=== PATIENT | male | born 1970 | race Caucasian/White ===

== ENCOUNTER 2017-05-08 16:16 | Emergency (ER) | payer MEDICAID ==
[~2017-05-08] VITALS: Ht 170.2 cm; Wt 49.5 kg
[2017-05-08] MEDS ORDERED: CLON-364 PO (16:44)
[2017-05-08] MEDS ORDERED: FLUO40CA2 PO (16:45)
[2017-05-08] MEDS ORDERED: MELO7.5T31 PO (16:45)
[2017-05-08] MEDS ORDERED: SODIUM CHLORIDE 0.9% 1,000ML IVBOLUS ONE (17:00)
[2017-05-08] MEDS ORDERED: SODIUM CHLORIDE FLUSH 10ML SYR IVF ONE (17:00)
[2017-05-08 17:08] LABS: BASOPHILS # (AUTO) 0.01 x10^3/uL (0-0.1); BASOPHILS % (AUTO) 0 % (0-1); EOSINOPHILS # (AUTO) 0.09 x10^3/uL (0-0.4); EOSINOPHILS % (AUTO) 1 % (1-7); LYMPHOCYTES # (AUTO) 1.45 x10^3/uL (1-3.4); LYMPHOCYTES % (AUTO) 10 % (22-44); MD NO; MEAN CORPUSCULAR HEMOGLOBIN 33.2 pg (27.5-34.5); MEAN CORPUSCULAR VOLUME 97.5 fL (81-97); MEAN PLATELET VOLUME 7.7 fL (7.4-10.4); MONOCYTES % (AUTO) 6 % (2-9); NEUTROPHILS % (AUTO) 84 % (42-75); PLATELET COUNT 300 x10^3/uL (130-400); RED BLOOD COUNT 3.84 x10^6/uL (4.38-5.82); RED CELL DISTRIBUTION WIDTH 14.1 % (9.4-14.8)
[2017-05-08 17:20] LABS: ALBUMIN 3.6 g/dL (3.4-5.0); ANION GAP 8 mmol/L (5-15); CALCIUM 8.9 mg/dL (8.5-10.1); CHLORIDE 104 mmol/L (98-107)
[2017-05-08 17:27] LABS: ALANINE AMINOTRANSFERASE 14 U/L (12-78); ALKALINE PHOSPHATASE 113 U/L (45-117); BILIRUBIN,TOTAL 0.5 mg/dL (0.2-1.0); CREATININE 1.22 mg/dL (0.7-1.3); TOTAL PROTEIN 8.2 g/dL (6.4-8.2); TROPONIN I < 0.015 ng/mL (0.000-0.045)
[2017-05-08 18:13] VITALS: BP 110/72
[2017-05-08] MEDS ORDERED: ACETAMINOPHEN 325 MG TABLET ONE (18:15)
[2017-05-08] MEDS ORDERED: ACETAMINOPHEN 325 MG TABLET PO ONE (18:30)
[2017-05-08 18:36] LABS: RAPID INFLUENZA A Negative (Negative); RAPID INFLUENZA B Negative (Negative)
== END 2017-05-08 19:26 | disposition home or self-care (01) ==
LOC: ED 19:09
DX: R42 Dizziness and giddiness (principal); E86.0 Dehydration; D72.829 Elevated white blood cell count, unspecified; M25.552 Pain in left hip; G89.29 Other chronic pain
CPT/HCPCS: 36415; 71046; 80053; 84484; 85025; 87400; 93005; 96360; 99285; J7030

== ENCOUNTER 2017-05-21 12:29 | Emergency (ER) | payer MEDICAID ==
[~2017-05-21] VITALS: Ht 170.2 cm; Wt 49.8 kg
[~2017-05-21 12:29] MED LIST: CLON-364 PO; FLUO40CA2 PO; MELO7.5T31 PO
[2017-05-21 18:27] VITALS: BP 110/52
== END 2017-05-21 18:40 | disposition home or self-care (01) ==
LOC: ED 18:16
DX: J11.1 Influenza due to unidentified influenza virus with other respiratory manifestations (principal); B34.9 Viral infection, unspecified; G89.29 Other chronic pain
CPT/HCPCS: 71046; 93005; 99284

== ENCOUNTER 2017-12-04 01:52 | Emergency (ER) | payer MEDICAID ==
[~2017-12-04] VITALS: Ht 170.2 cm; Wt 50.0 kg
[~2017-12-04 01:52] MED LIST changes: -CLON-364 PO; +CLON0.5T11 PO
[2017-12-04 02:51] LABS: BASOPHILS # (AUTO) 0.06 x10^3/uL (0-0.1); BASOPHILS % (AUTO) 1 % (0-1); EOSINOPHILS # (AUTO) 0.08 x10^3/uL (0-0.4); EOSINOPHILS % (AUTO) 1 % (1-7); LYMPHOCYTES # (AUTO) 2.16 x10^3/uL (1-3.4); LYMPHOCYTES % (AUTO) 19 % (22-44); MD NO; MEAN CORPUSCULAR HEMOGLOBIN 33.2 pg (27.5-34.5); MEAN CORPUSCULAR HGB CONC 34.7 g/dL (33.2-36.2); MEAN CORPUSCULAR VOLUME 95.7 fL (81-97); MEAN PLATELET VOLUME 7.6 fL (7.4-10.4); MONOCYTES # (AUTO) 0.54 x10^3/uL (0.2-0.8); MONOCYTES % (AUTO) 5 % (2-9); NEUTROPHILS # (AUTO) 8.73 x10^3/uL (1.8-6.8); NEUTROPHILS % (AUTO) 75 % (42-75); PLATELET COUNT 279 x10^3/uL (130-400); RED BLOOD COUNT 4.43 x10^6/uL (4.38-5.82); RED CELL DISTRIBUTION WIDTH 15.5 % (9.4-14.8)
[2017-12-04 02:57] LABS: ALANINE AMINOTRANSFERASE 14 U/L (12-78); ALBUMIN 3.9 g/dL (3.4-5.0); ANION GAP 8 mmol/L (5-15); CALCIUM 8.7 mg/dL (8.5-10.1); CHLORIDE 104 mmol/L (98-107); CREATININE 1.14 mg/dL (0.7-1.3)
[2017-12-04 02:59] LABS: ALKALINE PHOSPHATASE 98 U/L (45-117); BILIRUBIN,TOTAL 0.2 mg/dL (0.2-1.0); TOTAL PROTEIN 8.7 g/dL (6.4-8.2)
[2017-12-04 03:02] LABS: MICROSCOPIC NOT IND
[2017-12-04 03:04] LABS: CULTURE INDICATED? NO
[2017-12-04 03:14] LABS: AMPHETAMINE SCREEN, URINE Negative (Negative); BARBITURATE SCREEN, URINE Negative (Negative); BENZODIAZEPINE SCREEN, URINE Negative (Negative); CANNABINOID SCREEN, URINE Negative (Negative); COCAINE SCREEN, URINE Negative (Negative); METHADONE SCREEN, URINE Negative (Negative); OPIATE SCREEN, URINE Negative (Negative)
[2017-12-04 04:43] VITALS: BP 114/67
== END 2017-12-04 06:12 | disposition home or self-care (01) ==
LOC: ED 05:55
DX: N40.1 Benign prostatic hyperplasia with lower urinary tract symptoms (principal); F10.120 Alcohol abuse with intoxication, uncomplicated; Z79.899 Other long term (current) drug therapy
CPT/HCPCS: 36415; 51701; 80053; 80307; 81003; 83690; 85025; 99284; P9612

== ENCOUNTER 2017-12-13 07:05 | Emergency (ER) | payer MEDICAID ==
[~2017-12-13] VITALS: Ht 170.2 cm; Wt 50.0 kg
[2017-12-13 07:55] LABS: BASOPHILS # (AUTO) 0.03 x10^3/uL (0-0.1); BASOPHILS % (AUTO) 0 % (0-1); EOSINOPHILS # (AUTO) 0.04 x10^3/uL (0-0.4); EOSINOPHILS % (AUTO) 1 % (1-7); LYMPHOCYTES # (AUTO) 1.76 x10^3/uL (1-3.4); LYMPHOCYTES % (AUTO) 22 % (22-44); MD NO; MEAN CORPUSCULAR HEMOGLOBIN 32.5 pg (27.5-34.5); MEAN CORPUSCULAR HGB CONC 33.8 g/dL (33.2-36.2); MEAN CORPUSCULAR VOLUME 96.1 fL (81-97); MONOCYTES # (AUTO) 0.43 x10^3/uL (0.2-0.8); MONOCYTES % (AUTO) 5 % (2-9); NEUTROPHILS # (AUTO) 5.93 x10^3/uL (1.8-6.8); NEUTROPHILS % (AUTO) 72 % (42-75); PLATELET COUNT 263 x10^3/uL (130-400); RED BLOOD COUNT 4.41 x10^6/uL (4.38-5.82); RED CELL DISTRIBUTION WIDTH 15.4 % (9.4-14.8)
[2017-12-13 08:02] LABS: ALANINE AMINOTRANSFERASE 15 U/L (12-78); ALBUMIN 3.9 g/dL (3.4-5.0); ANION GAP 9 mmol/L (5-15); CALCIUM 8.5 mg/dL (8.5-10.1); CHLORIDE 105 mmol/L (98-107); CREATININE 1.06 mg/dL (0.7-1.3)
[2017-12-13 08:05] LABS: ALKALINE PHOSPHATASE 93 U/L (45-117); BILIRUBIN,TOTAL 0.2 mg/dL (0.2-1.0); TOTAL PROTEIN 8.5 g/dL (6.4-8.2)
[2017-12-13 09:14] LABS: MICROSCOPIC INDICATED
[2017-12-13 09:22] LABS: CULTURE INDICATED? NO
[2017-12-13 10:02] VITALS: BP 105/74
== END 2017-12-13 11:54 | disposition left against medical advice (07) ==
LOC: ED 08:04
DX: F10.220 Alcohol dependence with intoxication, uncomplicated (principal); R33.9 Retention of urine, unspecified; G89.29 Other chronic pain
CPT/HCPCS: 36415; 80053; 81001; 85025; 99284

== ENCOUNTER 2018-01-15 22:45 | Emergency (ER) | payer MEDICAID ==
[~2018-01-15] VITALS: Ht 170.2 cm; Wt 50.0 kg
[2018-01-15 22:45] VITALS: BP 120/83
[2018-01-15 23:15] LABS: BASOPHILS # (AUTO) 0.04 x10^3/uL (0-0.1); BASOPHILS % (AUTO) 1 % (0-1); EOSINOPHILS # (AUTO) 0.08 x10^3/uL (0-0.4); EOSINOPHILS % (AUTO) 1 % (1-7); LYMPHOCYTES # (AUTO) 2.45 x10^3/uL (1-3.4); LYMPHOCYTES % (AUTO) 38 % (22-44); MD NO; MEAN CORPUSCULAR HEMOGLOBIN 33.7 pg (27.5-34.5); MEAN CORPUSCULAR HGB CONC 34.7 g/dL (33.2-36.2); MEAN CORPUSCULAR VOLUME 97.1 fL (81-97); MEAN PLATELET VOLUME 7.6 fL (7.4-10.4); MONOCYTES % (AUTO) 9 % (2-9); NEUTROPHILS # (AUTO) 3.37 x10^3/uL (1.8-6.8); NEUTROPHILS % (AUTO) 52 % (42-75); PLATELET COUNT 256 x10^3/uL (130-400); RED BLOOD COUNT 4.04 x10^6/uL (4.38-5.82); RED CELL DISTRIBUTION WIDTH 14.3 % (9.4-14.8)
[2018-01-15 23:23] LABS: ALBUMIN 3.8 g/dL (3.4-5.0); ANION GAP 10 mmol/L (5-15); CALCIUM 8.7 mg/dL (8.5-10.1); CHLORIDE 109 mmol/L (98-107)
[2018-01-16 00:22] LABS: MICROSCOPIC NOT IND
[2018-01-16 00:25] LABS: CULTURE INDICATED? NO
== END 2018-01-16 01:19 | disposition home or self-care (01) ==
LOC: ED 23:07
DX: R33.9 Retention of urine, unspecified (principal); F10.220 Alcohol dependence with intoxication, uncomplicated; G89.29 Other chronic pain; Z79.899 Other long term (current) drug therapy
CPT/HCPCS: 36415; 51701; 80048; 80307; 81003; 82040; 85025; 99285; P9612

== ENCOUNTER 2018-02-11 00:09 | Emergency (ER) | payer MEDICAID ==
[~2018-02-11] VITALS: Ht 170.2 cm; Wt 55.0 kg
[2018-02-11] MEDS ORDERED: DIAZEPAM 5 MG TABLET ONE (00:45)
[2018-02-11] MEDS ORDERED: DIAZEPAM 5 MG TABLET PO ONE (01:00)
[2018-02-11 01:04] VITALS: BP 132/74
== END 2018-02-11 01:06 | disposition home or self-care (01) ==
LOC: ED 00:54
DX: M79.651 Pain in right thigh (principal); M62.838 Other muscle spasm; G25.81 Restless legs syndrome; G89.29 Other chronic pain
CPT/HCPCS: 99284

== ENCOUNTER 2018-02-11 06:01 | Emergency (ER) | payer MEDICAID ==
[~2018-02-11] VITALS: Ht 167.6 cm; Wt 54.0 kg
[2018-02-11 07:21] LABS: MICROSCOPIC NOT IND
[2018-02-11 07:24] LABS: CULTURE INDICATED? NO
[2018-02-11 08:28] VITALS: BP 113/79
== END 2018-02-11 08:30 | disposition home or self-care (01) ==
LOC: ED 06:11
DX: N40.1 Benign prostatic hyperplasia with lower urinary tract symptoms (principal); R33.8 Other retention of urine
CPT/HCPCS: 81003; 99283

== ENCOUNTER 2018-02-16 09:06 | Emergency (ER) | payer MEDICAID ==
[~2018-02-16] VITALS: Ht 170.2 cm; Wt 52.4 kg
[2018-02-16 09:10] VITALS: BP 106/77
[2018-02-17] MEDS ORDERED: TAMS0.4C2 PO (16:12)
[2018-02-17] MEDS ORDERED: CLON0.5T20 PO (16:12)
== END 2018-02-16 10:52 | disposition home or self-care (01) ==
LOC: ED 09:40
DX: R33.9 Retention of urine, unspecified (principal); F41.9 Anxiety disorder, unspecified; F32.9 Major depressive disorder, single episode, unspecified; Z86.19 Personal history of other infectious and parasitic diseases; Z87.01 Personal history of pneumonia (recurrent)
CPT/HCPCS: 99281

== ENCOUNTER 2018-02-16 14:22 | Inpatient (IN) | payer MEDICAID ==
[~2018-02-16] VITALS: Ht 167.6 cm; Wt 54.7 kg
[2018-02-16 15:13] LABS: BASOPHILS # (AUTO) 0.03 x10^3/uL (0-0.1); BASOPHILS % (AUTO) 0 % (0-1); EOSINOPHILS # (AUTO) 0.07 x10^3/uL (0-0.4); EOSINOPHILS % (AUTO) 1 % (1-7); LYMPHOCYTES # (AUTO) 1.21 x10^3/uL (1-3.4); LYMPHOCYTES % (AUTO) 16 % (22-44); MD NO; MEAN CORPUSCULAR HEMOGLOBIN 33.2 pg (27.5-34.5); MEAN CORPUSCULAR VOLUME 97.7 fL (81-97); MONOCYTES # (AUTO) 0.63 x10^3/uL (0.2-0.8); MONOCYTES % (AUTO) 8 % (2-9); NEUTROPHILS # (AUTO) 5.77 x10^3/uL (1.8-6.8); NEUTROPHILS % (AUTO) 75 % (42-75); PLATELET COUNT 348 x10^3/uL (130-400); RED BLOOD COUNT 3.55 x10^6/uL (4.38-5.82); RED CELL DISTRIBUTION WIDTH 14.7 % (9.4-14.8)
[2018-02-16 15:20] LABS: ALBUMIN 3.1 g/dL (3.4-5.0); ANION GAP 6 mmol/L (5-15); CALCIUM 9.1 mg/dL (8.5-10.1); CHLORIDE 104 mmol/L (98-107)
[2018-02-16 15:23] LABS: ALANINE AMINOTRANSFERASE 23 U/L (12-78); ALKALINE PHOSPHATASE 105 U/L (45-117); BILIRUBIN,TOTAL 0.5 mg/dL (0.2-1.0); CREATININE 1.12 mg/dL (0.7-1.3); TOTAL PROTEIN 7.2 g/dL (6.4-8.2)
[2018-02-16] MEDS ORDERED: OMNIPAQUE 350 MG/ML, 100ML BOTTLE ONE (17:18)
[2018-02-16] MEDS ORDERED: LIDOCAINE-MPF 1%, 5ML ONE (18:15)
[2018-02-16] MEDS ORDERED: TEMAZEPAM 15 MG CAPSULE PO PRN (18:30)
[2018-02-16] MEDS ORDERED: ONDANSETRON ODT 4 MG PO PRN (18:30)
[2018-02-16] MEDS ORDERED: ACETAMINOPHEN 325 MG TABLET PO PRN (18:30)
[2018-02-16] MEDS ORDERED: hydrALAzine 20 MG/ML, 1ML IVPush PRN (18:30)
[2018-02-16] MEDS ORDERED: FENTANYL PF 100 MCG/2ML ONE (18:38)
[2018-02-16 20:00] VITALS: BP 114/76
[2018-02-16 20:09] VITALS: BP 114/76
[2018-02-17 03:26] VITALS: BP 117/83
[2018-02-17 05:30] LABS: BASOPHILS # (AUTO) 0.05 x10^3/uL (0-0.1); BASOPHILS % (AUTO) 1 % (0-1); EOSINOPHILS % (AUTO) 1 % (1-7); LYMPHOCYTES # (AUTO) 1.22 x10^3/uL (1-3.4); LYMPHOCYTES % (AUTO) 15 % (22-44); MD NO; MEAN CORPUSCULAR HEMOGLOBIN 33.6 pg (27.5-34.5); MEAN CORPUSCULAR HGB CONC 33.7 g/dL (33.2-36.2); MEAN CORPUSCULAR VOLUME 99.6 fL (81-97); MEAN PLATELET VOLUME 7.5 fL (7.4-10.4); MONOCYTES # (AUTO) 0.72 x10^3/uL (0.2-0.8); MONOCYTES % (AUTO) 9 % (2-9); NEUTROPHILS # (AUTO) 5.95 x10^3/uL (1.8-6.8); NEUTROPHILS % (AUTO) 74 % (42-75); PLATELET COUNT 335 x10^3/uL (130-400); RED BLOOD COUNT 3.57 x10^6/uL (4.38-5.82); RED CELL DISTRIBUTION WIDTH 14.8 % (9.4-14.8)
[2018-02-17 05:40] LABS: ANION GAP 8 mmol/L (5-15); CALCIUM 8.6 mg/dL (8.5-10.1); CHLORIDE 109 mmol/L (98-107)
[2018-02-17 05:41] LABS: CREATININE 0.86 mg/dL (0.7-1.3)
[2018-02-17 07:59] VITALS: BP 122/80
[2018-02-17] MEDS: HYDROcodone/APAP 5/325 TABLET PO PRN (09:32)
[2018-02-17 15:00] VITALS: BP 106/73
[2018-02-17] MEDS ORDERED: CLON0.5T20 PO (16:12)
[2018-02-17] MEDS ORDERED: TAMS0.4C2 PO (16:12)
[2018-02-17 19:09] VITALS: BP 113/75
[2018-02-18 02:22] VITALS: BP 115/76
[2018-02-18] MEDS: FLUOXETINE HCL 20 MG CAPSULE PO SCH (07:58)
[2018-02-18 09:45] VITALS: BP 108/74
[2018-02-18 12:50] VITALS: BP 116/79
[2018-02-18 19:02] VITALS: BP 105/72
[2018-02-19 02:11] VITALS: BP 113/79
[2018-02-19 08:44] VITALS: BP 111/74
[2018-02-19] MEDS: FLUOXETINE HCL 20 MG CAPSULE PO SCH (08:47)
[2018-02-19] MEDS: HYDROcodone/APAP 5/325 TABLET PO PRN ×2 (12:13→17:26)
[2018-02-19 15:31] VITALS: BP 111/76
[2018-02-19 19:05] VITALS: BP 104/70
[2018-02-20 02:16] VITALS: BP 118/78
[2018-02-20] MEDS: HYDROcodone/APAP 5/325 TABLET PO PRN ×3 (03:55→19:55)
[2018-02-20 07:59] VITALS: BP 106/71
[2018-02-20] MEDS: FLUOXETINE HCL 20 MG CAPSULE PO SCH (08:50)
[2018-02-20 13:41] VITALS: BP 101/50
[2018-02-20] MEDS: DOCUSATE 100 MG CAPSULE PO PRN (16:33)
[2018-02-20] MEDS ORDERED: BISACODYL 10 MG SUPP PR PRN (17:00)
[2018-02-20] MEDS: MAGNESIUM HYDROXIDE 8%, 30ML UDC PO PRN (17:44)
[2018-02-20 20:21] VITALS: BP 111/79
[2018-02-21 04:17] VITALS: BP 110/77
[2018-02-21 05:18] LABS: BASOPHILS # (AUTO) 0.02 x10^3/uL (0-0.1); BASOPHILS % (AUTO) 0 % (0-1); EOSINOPHILS # (AUTO) 0.13 x10^3/uL (0-0.4); EOSINOPHILS % (AUTO) 1 % (1-7); LYMPHOCYTES # (AUTO) 1.47 x10^3/uL (1-3.4); LYMPHOCYTES % (AUTO) 16 % (22-44); MD NO; MEAN CORPUSCULAR HEMOGLOBIN 33.8 pg (27.5-34.5); MEAN CORPUSCULAR HGB CONC 34.1 g/dL (33.2-36.2); MEAN CORPUSCULAR VOLUME 99.2 fL (81-97); MEAN PLATELET VOLUME 7.3 fL (7.4-10.4); MONOCYTES # (AUTO) 1.21 x10^3/uL (0.2-0.8); MONOCYTES % (AUTO) 13 % (2-9); NEUTROPHILS # (AUTO) 6.35 x10^3/uL (1.8-6.8); NEUTROPHILS % (AUTO) 69 % (42-75); PLATELET COUNT 348 x10^3/uL (130-400); RED BLOOD COUNT 3.73 x10^6/uL (4.38-5.82); RED CELL DISTRIBUTION WIDTH 14.6 % (9.4-14.8)
[2018-02-21 05:27] LABS: INTERNATIONAL NORMALIZED RATIO 0.96 (0.93-1.1); PROTHROMBIN TIME 9.9 Seconds (9.6-11.5)
[2018-02-21 05:29] LABS: ANION GAP 7 mmol/L (5-15); CALCIUM 8.7 mg/dL (8.5-10.1); CHLORIDE 104 mmol/L (98-107)
[2018-02-21 05:31] LABS: CREATININE 0.85 mg/dL (0.7-1.3)
[2018-02-21 07:09] VITALS: BP 105/69
[2018-02-21] MEDS: FLUOXETINE HCL 20 MG CAPSULE PO SCH (09:00)
[2018-02-21] MEDS ORDERED: D5%-0.45% NACL 1,000 ML IV SCH (10:00)
[2018-02-21] MEDS: HYDROcodone/APAP 5/325 TABLET PO PRN (10:02)
[2018-02-21] MEDS ORDERED: MIDAZOLAM 1 MG/ML, 2ML ONE (12:35)
[2018-02-21] MEDS ORDERED: FENTANYL PF 250 MCG/5ML ONE (12:35)
[2018-02-21] MEDS ORDERED: BUPIVACAINE/PF-EPI 0.5% 1:200K ONE (12:51)
[2018-02-21] MEDS ORDERED: HYDROmorphone 1 MG/ML, 1ML IV PRN (13:00)
[2018-02-21] MEDS ORDERED: MORPHINE SULFATE 4 MG/ML, 1ML IVPush PRN (13:00)
[2018-02-21] MEDS ORDERED: MEPERIDINE/PF 25MG/0.5ML IVPush PRN (13:00)
[2018-02-21] MEDS ORDERED: MIDAZOLAM 1 MG/ML, 2ML IV PRN (13:00)
[2018-02-21] MEDS ORDERED: PROMETHAZINE 12.5 MG SUPP PR PRN (13:00)
[2018-02-21] MEDS ORDERED: OXYcodone 5 MG/5 ML ORAL.SOL UDC PO PRN (13:00)
[2018-02-21] MEDS ORDERED: PROMETHAZINE 25 MG/ML, 1ML IM PRN (13:00)
[2018-02-21] MEDS ORDERED: LABETALOL 5MG/ML, 20ML IV PRN (13:00)
[2018-02-21] MEDS ORDERED: EPHEDRINE 50 MG/ML, 1ML IVPush PRN (13:00)
[2018-02-21] MEDS ORDERED: ONDANSETRON 2MG/ML, 2ML IV PRN ×2 (13:00→17:00)
[2018-02-21] MEDS ORDERED: LORazepam 2 MG/ML, 1ML IVPush PRN (13:00)
[2018-02-21] MEDS ORDERED: hydrALAzine 20 MG/ML, 1ML IV PRN (13:00)
[2018-02-21] MEDS ORDERED: ONDANSETRON ODT 8 MG PO PRN (13:00)
[2018-02-21] MEDS ORDERED: ALBUTEROL SULFATE 2.5 MG/3 ML NPPB PRN (13:00)
[2018-02-21] MEDS ORDERED: NEOSTIGMINE 1 MG/ML, 10ML ONE (13:27)
[2018-02-21] MEDS ORDERED: ROCURONIUM 10 MG/ML,10ML ONE (13:27)
[2018-02-21] MEDS ORDERED: PROPOFOL 10 MG/ML, 20ML ONE (13:27)
[2018-02-21] MEDS ORDERED: ONDANSETRON 2MG/ML, 2ML ONE (13:27)
[2018-02-21] MEDS ORDERED: GLYCOPYRROLATE 0.2MG/1ML, 5ML ONE (13:27)
[2018-02-21] MEDS ORDERED: SUCCINYLCHOLINE 20 MG/ML, 10ML ONE (13:27)
[2018-02-21] MEDS ORDERED: DEXAMETHASONE 4 MG/ML, 1ML ONE (13:56)
[2018-02-21] MEDS ORDERED: DOXYCYCLINE 100 MG ONE ×3 (14:04→14:10)
[2018-02-21] MEDS ORDERED: SODIUM CHLORIDE 0.9% 100 ML ONE (14:05)
[2018-02-21] MEDS ORDERED: BUPIVACAINE/EPI 0.5% 1:200K INFIL ONE (14:30)
[2018-02-21] MEDS ORDERED: FENTANYL PF 100 MCG/2ML ONE (14:58)
[2018-02-21] MEDS ORDERED: MORPHINE SULFATE 4 MG/ML, 1ML ONE ×2 (14:58→15:54)
[2018-02-21] MEDS: FENTANYL PF 100 MCG/2ML IV PRN ×2 (15:04→15:18)
[2018-02-21] MEDS ORDERED: LABETALOL 5MG/ML, 20ML ONE (15:23)
[2018-02-21] MEDS ORDERED: hydrALAzine 20 MG/ML, 1ML ONE (15:47)
[2018-02-21] MEDS: ACETAMINOPHEN 500 MG TABLET PO SCH (18:11)
[2018-02-21] MEDS: POTASSIUM CHLORIDE 20 MEQ in D5%-0.45% NACL 1,000 ML IV SCH (19:05)
[2018-02-21 20:00] VITALS: BP 112/79
[2018-02-21 23:51] VITALS: BP 108/75
[2018-02-22] MEDS: ACETAMINOPHEN 500 MG TABLET PO SCH ×4 (00:12→18:46)
[2018-02-22 04:04] VITALS: BP 102/69
[2018-02-22] MEDS: POTASSIUM CHLORIDE 20 MEQ in D5%-0.45% NACL 1,000 ML IV SCH ×2 (05:52→18:51)
[2018-02-22 06:51] VITALS: BP 104/68
[2018-02-22] MEDS: FLUOXETINE HCL 20 MG CAPSULE PO SCH (08:18)
[2018-02-22] MEDS: HEPARIN 5,000 UNITS/ML, 1ML SQ SCH ×2 (09:53→18:46)
[2018-02-22 12:52] VITALS: BP 102/71
[2018-02-22] MEDS: MAGNESIUM HYDROXIDE 8%, 30ML UDC PO PRN (18:46)
[2018-02-22] MEDS: DOCUSATE 100 MG CAPSULE PO PRN (18:46)
[2018-02-22 20:26] VITALS: BP 107/67
[2018-02-23] MEDS: ACETAMINOPHEN 500 MG TABLET PO SCH ×5 (00:08→22:45)
[2018-02-23] MEDS: HEPARIN 5,000 UNITS/ML, 1ML SQ SCH ×4 (01:32→22:45)
[2018-02-23 02:15] VITALS: BP 97/63
[2018-02-23 05:54] LABS: ANION GAP 6 mmol/L (5-15); CALCIUM 8.7 mg/dL (8.5-10.1); CHLORIDE 102 mmol/L (98-107)
[2018-02-23 05:57] LABS: CREATININE 0.73 mg/dL (0.7-1.3)
[2018-02-23 06:09] LABS: BASOPHILS # (AUTO) 0.03 x10^3/uL (0-0.1); BASOPHILS % (AUTO) 0 % (0-1); EOSINOPHILS # (AUTO) 0.08 x10^3/uL (0-0.4); EOSINOPHILS % (AUTO) 1 % (1-7); LYMPHOCYTES % (AUTO) 19 % (22-44); MD NO; MEAN CORPUSCULAR HGB CONC 34.3 g/dL (33.2-36.2); MEAN PLATELET VOLUME 7.1 fL (7.4-10.4); MONOCYTES # (AUTO) 1.14 x10^3/uL (0.2-0.8); MONOCYTES % (AUTO) 14 % (2-9); NEUTROPHILS # (AUTO) 5.54 x10^3/uL (1.8-6.8); NEUTROPHILS % (AUTO) 66 % (42-75); PLATELET COUNT 342 x10^3/uL (130-400); RED BLOOD COUNT 2.33 x10^6/uL (4.38-5.82); RED CELL DISTRIBUTION WIDTH 13.7 % (9.4-14.8)
[2018-02-23 06:54] VITALS: BP 98/62
[2018-02-23] MEDS: FLUOXETINE HCL 20 MG CAPSULE PO SCH (08:58)
[2018-02-23] MEDS: DOCUSATE 100 MG CAPSULE PO PRN (09:03)
[2018-02-23] MEDS: POTASSIUM CHLORIDE 20 MEQ in D5%-0.45% NACL 1,000 ML IV SCH ×2 (09:24→22:43)
[2018-02-23 11:58] LABS: BASOPHILS # (AUTO) 0.02 x10^3/uL (0-0.1); BASOPHILS % (AUTO) 0 % (0-1); EOSINOPHILS # (AUTO) 0.07 x10^3/uL (0-0.4); EOSINOPHILS % (AUTO) 1 % (1-7); LYMPHOCYTES # (AUTO) 1.34 x10^3/uL (1-3.4); LYMPHOCYTES % (AUTO) 18 % (22-44); MD NO; MEAN CORPUSCULAR HEMOGLOBIN 33.3 pg (27.5-34.5); MEAN CORPUSCULAR HGB CONC 33.8 g/dL (33.2-36.2); MEAN CORPUSCULAR VOLUME 98.5 fL (81-97); MEAN PLATELET VOLUME 7.4 fL (7.4-10.4); MONOCYTES % (AUTO) 11 % (2-9); NEUTROPHILS # (AUTO) 5.37 x10^3/uL (1.8-6.8); NEUTROPHILS % (AUTO) 71 % (42-75); PLATELET COUNT 367 x10^3/uL (130-400); RED BLOOD COUNT 2.36 x10^6/uL (4.38-5.82)
[2018-02-23 12:18] VITALS: BP 113/69
[2018-02-23] MEDS ORDERED: OMNIPAQUE 350 MG/ML, 75ML BOTTLE ONE (14:18)
[2018-02-23] MEDS: TAMSULOSIN 0.4 MG CAP.ER.24H PO SCH (15:22)
[2018-02-23 20:50] VITALS: BP 104/64
[2018-02-24 01:18] VITALS: BP 101/66
[2018-02-24 05:24] LABS: ANION GAP 7 mmol/L (5-15); CALCIUM 8.1 mg/dL (8.5-10.1); CHLORIDE 104 mmol/L (98-107); CREATININE 0.76 mg/dL (0.7-1.3)
[2018-02-24 05:26] LABS: MEAN CORPUSCULAR HEMOGLOBIN 33.7 pg (27.5-34.5); MEAN PLATELET VOLUME 7.2 fL (7.4-10.4); PLATELET COUNT 346 x10^3/uL (130-400); RED BLOOD COUNT 2.24 x10^6/uL (4.38-5.82)
[2018-02-24 05:43] LABS: BASOPHILS # (AUTO) 0.04 x10^3/uL (0-0.1); BASOPHILS % (AUTO) 1 % (0-1); EOSINOPHILS # (AUTO) 0.14 x10^3/uL (0-0.4); EOSINOPHILS % (AUTO) 2 % (1-7); LYMPHOCYTES % (AUTO) 16 % (22-44); MD SCAN; MONOCYTES # (AUTO) 0.68 x10^3/uL (0.2-0.8); MONOCYTES % (AUTO) 11 % (2-9); NEUTROPHILS # (AUTO) 4.46 x10^3/uL (1.8-6.8); NEUTROPHILS % (AUTO) 71 % (42-75)
[2018-02-24 07:53] VITALS: BP 99/67
[2018-02-24] MEDS: FLUOXETINE HCL 20 MG CAPSULE PO SCH (09:00)
[2018-02-24] MEDS: TAMSULOSIN 0.4 MG CAP.ER.24H PO SCH (09:00)
[2018-02-24] MEDS: HEPARIN 5,000 UNITS/ML, 1ML SQ SCH ×2 (10:00→18:00)
[2018-02-24] MEDS: ACETAMINOPHEN 500 MG TABLET PO SCH ×3 (11:00→23:29)
[2018-02-24] MEDS: POTASSIUM CHLORIDE 20 MEQ in D5%-0.45% NACL 1,000 ML IV SCH (12:20)
[2018-02-24 14:15] VITALS: BP 108/70
[2018-02-24] MEDS ORDERED: EPINEPHRINE 1 MG/ML, 1ML ONE (15:02)
[2018-02-24] MEDS ORDERED: BUPIVACAINE/PF 0.5% ONE (15:02)
[2018-02-24] MEDS ORDERED: FENTANYL PF 250 MCG/5ML ONE (15:24)
[2018-02-24] MEDS ORDERED: MIDAZOLAM 1 MG/ML, 2ML ONE (15:43)
[2018-02-24] MEDS ORDERED: ONDANSETRON 2MG/ML, 2ML ONE (15:44)
[2018-02-24] MEDS ORDERED: FENTANYL PF 100 MCG/2ML ONE ×2 (16:22→17:58)
[2018-02-24] MEDS ORDERED: MEPERIDINE/PF 50 MG/ML ONE (17:19)
[2018-02-24] MEDS ORDERED: hydrALAzine 20 MG/ML, 1ML IV PRN (17:30)
[2018-02-24] MEDS ORDERED: HYDROmorphone 1 MG/ML, 1ML IV PRN (17:30)
[2018-02-24] MEDS ORDERED: ONDANSETRON ODT 8 MG PO PRN (17:30)
[2018-02-24] MEDS ORDERED: MORPHINE SULFATE 4 MG/ML, 1ML IVPush PRN (17:30)
[2018-02-24] MEDS ORDERED: HALOPERIDOL 5 MG/ML IV PRN (17:30)
[2018-02-24] MEDS ORDERED: LORazepam 2 MG/ML, 1ML IVPush PRN (17:30)
[2018-02-24] MEDS ORDERED: PROMETHAZINE 25 MG/ML, 1ML IV PRN (17:30)
[2018-02-24] MEDS ORDERED: PROMETHAZINE 12.5 MG SUPP PR PRN (17:30)
[2018-02-24] MEDS ORDERED: ONDANSETRON 2MG/ML, 2ML IV PRN (17:30)
[2018-02-24] MEDS ORDERED: LABETALOL 5MG/ML, 20ML IV PRN (17:30)
[2018-02-24] MEDS ORDERED: OXYcodone 5 MG/5 ML ORAL.SOL UDC PO PRN (17:30)
[2018-02-24] MEDS ORDERED: EPHEDRINE 50 MG/ML, 1ML IVPush PRN (17:30)
[2018-02-24] MEDS ORDERED: MEPERIDINE/PF 25MG/0.5ML IVPush PRN (17:30)
[2018-02-24] MEDS ORDERED: MIDAZOLAM 1 MG/ML, 2ML IV PRN (17:30)
[2018-02-24] MEDS ORDERED: ALBUTEROL SULFATE 2.5 MG/3 ML NPPB PRN (17:30)
[2018-02-24] MEDS ORDERED: OXYcodone 5 MG/5 ML ORAL.SOL UDC ONE (17:59)
[2018-02-24] MEDS: FENTANYL PF 100 MCG/2ML IV PRN ×2 (18:00→18:15)
[2018-02-24 18:50] VITALS: BP 119/77
[2018-02-25 00:34] VITALS: BP 111/74
[2018-02-25] MEDS: HEPARIN 5,000 UNITS/ML, 1ML SQ SCH ×3 (02:00→17:02)
[2018-02-25] MEDS: POTASSIUM CHLORIDE 20 MEQ in D5%-0.45% NACL 1,000 ML IV SCH (03:59)
[2018-02-25] MEDS: ACETAMINOPHEN 500 MG TABLET PO SCH ×4 (05:38→23:07)
[2018-02-25 07:15] VITALS: BP 112/74
[2018-02-25] MEDS: FLUOXETINE HCL 20 MG CAPSULE PO SCH (08:58)
[2018-02-25] MEDS: TAMSULOSIN 0.4 MG CAP.ER.24H PO SCH (08:58)
[2018-02-25] MEDS: CYANOCOBALOMIN 100MCG TABLET PO SCH (10:22)
[2018-02-25] MEDS: POLYETHYLENE GLYCOL 17 GM PACKET PO SCH (10:22)
[2018-02-25 13:00] VITALS: BP 107/69
[2018-02-25 18:30] VITALS: BP 106/69
[2018-02-25] MEDS: AMPICILLIN/SULBACTAM 3 GM in SODIUM CHLORIDE 0.9% 100 ML IV SCH (23:07)
[2018-02-26 00:49] VITALS: BP 102/69
[2018-02-26] MEDS: HEPARIN 5,000 UNITS/ML, 1ML SQ SCH ×3 (04:41→22:36)
[2018-02-26] MEDS: AMPICILLIN/SULBACTAM 3 GM in SODIUM CHLORIDE 0.9% 100 ML IV SCH ×4 (04:44→22:36)
[2018-02-26] MEDS: DOCUSATE 100 MG CAPSULE PO PRN (04:44)
[2018-02-26] MEDS: ACETAMINOPHEN 500 MG TABLET PO SCH ×3 (05:28→18:07)
[2018-02-26 07:18] VITALS: BP 105/71
[2018-02-26] MEDS ORDERED: ALBUTEROL SULFATE 2.5 MG/3 ML NPPB PRN (08:30)
[2018-02-26] MEDS: TAMSULOSIN 0.4 MG CAP.ER.24H PO SCH (09:07)
[2018-02-26] MEDS: CYANOCOBALOMIN 100MCG TABLET PO SCH (09:07)
[2018-02-26] MEDS: FLUOXETINE HCL 20 MG CAPSULE PO SCH (09:07)
[2018-02-26] MEDS: POLYETHYLENE GLYCOL 17 GM PACKET PO SCH (09:08)
[2018-02-26 14:43] VITALS: BP 105/69
[2018-02-26] MEDS: MAGNESIUM HYDROXIDE 8%, 30ML UDC PO PRN (15:08)
[2018-02-26] MEDS: OXYcodone 5 MG/5 ML ORAL.SOL UDC PO PRN (15:09)
[2018-02-26] MEDS ORDERED: OXYcodone 5 MG/5 ML ORAL.SOL UDC PO PRN (16:00)
[2018-02-26 19:57] VITALS: BP 107/72
[2018-02-27] MEDS: OXYcodone 5 MG/5 ML ORAL.SOL UDC PO PRN ×6 (00:37→21:31)
[2018-02-27] MEDS: ACETAMINOPHEN 500 MG TABLET PO SCH ×5 (00:37→23:52)
[2018-02-27 00:41] VITALS: BP 113/72
[2018-02-27] MEDS: AMPICILLIN/SULBACTAM 3 GM in SODIUM CHLORIDE 0.9% 100 ML IV SCH ×4 (03:38→21:30)
[2018-02-27] MEDS: DOCUSATE 100 MG CAPSULE PO PRN (05:29)
[2018-02-27] MEDS: HEPARIN 5,000 UNITS/ML, 1ML SQ SCH ×3 (05:30→19:55)
[2018-02-27 05:45] LABS: BASOPHILS # (AUTO) 0.03 x10^3/uL (0-0.1); BASOPHILS % (AUTO) 0 % (0-1); EOSINOPHILS # (AUTO) 0.32 x10^3/uL (0-0.4); EOSINOPHILS % (AUTO) 4 % (1-7); LYMPHOCYTES # (AUTO) 1.89 x10^3/uL (1-3.4); LYMPHOCYTES % (AUTO) 24 % (22-44); MD NO; MEAN CORPUSCULAR HEMOGLOBIN 33.7 pg (27.5-34.5); MEAN CORPUSCULAR HGB CONC 34.3 g/dL (33.2-36.2); MEAN CORPUSCULAR VOLUME 98.3 fL (81-97); MEAN PLATELET VOLUME 6.6 fL (7.4-10.4); MONOCYTES # (AUTO) 1.01 x10^3/uL (0.2-0.8); MONOCYTES % (AUTO) 13 % (2-9); NEUTROPHILS # (AUTO) 4.64 x10^3/uL (1.8-6.8); NEUTROPHILS % (AUTO) 59 % (42-75); PLATELET COUNT 609 x10^3/uL (130-400); RED BLOOD COUNT 2.47 x10^6/uL (4.38-5.82); RED CELL DISTRIBUTION WIDTH 14.6 % (9.4-14.8)
[2018-02-27 05:52] LABS: ALBUMIN 2.5 g/dL (3.4-5.0); ANION GAP 7 mmol/L (5-15); CALCIUM 8.7 mg/dL (8.5-10.1); CHLORIDE 102 mmol/L (98-107)
[2018-02-27 05:54] LABS: CREATININE 0.87 mg/dL (0.7-1.3)
[2018-02-27 07:31] VITALS: BP 109/71
[2018-02-27] MEDS: CYANOCOBALOMIN 100MCG TABLET PO SCH (08:01)
[2018-02-27] MEDS: TAMSULOSIN 0.4 MG CAP.ER.24H PO SCH (08:02)
[2018-02-27] MEDS: FLUOXETINE HCL 20 MG CAPSULE PO SCH (08:02)
[2018-02-27] MEDS: POLYETHYLENE GLYCOL 17 GM PACKET PO SCH (08:02)
[2018-02-27 13:04] VITALS: BP 105/68
[2018-02-27 20:16] VITALS: BP 118/56
[2018-02-28 01:47] VITALS: BP 108/70
[2018-02-28] MEDS: OXYcodone 5 MG/5 ML ORAL.SOL UDC PO PRN ×2 (02:02→08:47)
[2018-02-28] MEDS: AMPICILLIN/SULBACTAM 3 GM in SODIUM CHLORIDE 0.9% 100 ML IV SCH ×4 (03:29→21:43)
[2018-02-28] MEDS: HEPARIN 5,000 UNITS/ML, 1ML SQ SCH ×3 (03:52→21:43)
[2018-02-28 05:22] LABS: BASOPHILS # (AUTO) 0.03 x10^3/uL (0-0.1); BASOPHILS % (AUTO) 0 % (0-1); EOSINOPHILS # (AUTO) 0.32 x10^3/uL (0-0.4); EOSINOPHILS % (AUTO) 4 % (1-7); LYMPHOCYTES # (AUTO) 1.94 x10^3/uL (1-3.4); LYMPHOCYTES % (AUTO) 24 % (22-44); MD NO; MEAN CORPUSCULAR HEMOGLOBIN 33.1 pg (27.5-34.5); MEAN CORPUSCULAR HGB CONC 33.2 g/dL (33.2-36.2); MEAN CORPUSCULAR VOLUME 99.8 fL (81-97); MEAN PLATELET VOLUME 6.7 fL (7.4-10.4); MONOCYTES # (AUTO) 0.94 x10^3/uL (0.2-0.8); MONOCYTES % (AUTO) 12 % (2-9); NEUTROPHILS # (AUTO) 4.81 x10^3/uL (1.8-6.8); NEUTROPHILS % (AUTO) 60 % (42-75); PLATELET COUNT 610 x10^3/uL (130-400); RED BLOOD COUNT 2.44 x10^6/uL (4.38-5.82); RED CELL DISTRIBUTION WIDTH 14.9 % (9.4-14.8)
[2018-02-28 05:56] LABS: CHLORIDE 107 mmol/L (98-107)
[2018-02-28] MEDS: ACETAMINOPHEN 500 MG TABLET PO SCH ×4 (06:00→23:55)
[2018-02-28 06:35] LABS: ALANINE AMINOTRANSFERASE 47 U/L (12-78); ALBUMIN 2.3 g/dL (3.4-5.0); ALKALINE PHOSPHATASE 90 U/L (45-117); ANION GAP 9 mmol/L (5-15); BILIRUBIN,TOTAL 0.2 mg/dL (0.2-1.0); CALCIUM 8.6 mg/dL (8.5-10.1); CREATININE 0.94 mg/dL (0.7-1.3); TOTAL PROTEIN 6.5 g/dL (6.4-8.2)
[2018-02-28 08:45] VITALS: BP 108/72
[2018-02-28] MEDS: CYANOCOBALOMIN 100MCG TABLET PO SCH (08:46)
[2018-02-28] MEDS: FLUOXETINE HCL 20 MG CAPSULE PO SCH (08:46)
[2018-02-28] MEDS: TAMSULOSIN 0.4 MG CAP.ER.24H PO SCH (08:46)
[2018-02-28] MEDS: POLYETHYLENE GLYCOL 17 GM PACKET PO SCH (09:00)
[2018-02-28 12:58] VITALS: BP 104/73
[2018-02-28 20:41] VITALS: BP 105/67
[2018-03-01] MEDS: ACETAMINOPHEN 500 MG TABLET PO SCH ×3 (00:24→13:38)
[2018-03-01] MEDS: OXYcodone 5 MG/5 ML ORAL.SOL UDC PO PRN ×2 (00:25→10:12)
[2018-03-01 03:11] VITALS: BP 120/76
[2018-03-01] MEDS: AMPICILLIN/SULBACTAM 3 GM in SODIUM CHLORIDE 0.9% 100 ML IV SCH ×2 (03:26→10:00)
[2018-03-01 05:36] LABS: BASOPHILS # (AUTO) 0.04 x10^3/uL (0-0.1); BASOPHILS % (AUTO) 0 % (0-1); EOSINOPHILS # (AUTO) 0.46 x10^3/uL (0-0.4); EOSINOPHILS % (AUTO) 5 % (1-7); LYMPHOCYTES # (AUTO) 2.37 x10^3/uL (1-3.4); LYMPHOCYTES % (AUTO) 24 % (22-44); MD NO; MEAN CORPUSCULAR HEMOGLOBIN 34.3 pg (27.5-34.5); MEAN CORPUSCULAR HGB CONC 34.3 g/dL (33.2-36.2); MEAN PLATELET VOLUME 6.6 fL (7.4-10.4); MONOCYTES # (AUTO) 0.87 x10^3/uL (0.2-0.8); MONOCYTES % (AUTO) 9 % (2-9); NEUTROPHILS # (AUTO) 6.02 x10^3/uL (1.8-6.8); NEUTROPHILS % (AUTO) 62 % (42-75); PLATELET COUNT 641 x10^3/uL (130-400); RED BLOOD COUNT 2.42 x10^6/uL (4.38-5.82)
[2018-03-01 05:42] LABS: ALBUMIN 2.5 g/dL (3.4-5.0); ANION GAP 10 mmol/L (5-15); CALCIUM 8.4 mg/dL (8.5-10.1); CHLORIDE 107 mmol/L (98-107); CREATININE 0.89 mg/dL (0.7-1.3)
[2018-03-01] MEDS: HEPARIN 5,000 UNITS/ML, 1ML SQ SCH ×2 (06:19→14:00)
[2018-03-01 07:22] VITALS: BP 109/73
[2018-03-01] MEDS: FLUOXETINE HCL 20 MG CAPSULE PO SCH (10:01)
[2018-03-01] MEDS: TAMSULOSIN 0.4 MG CAP.ER.24H PO SCH (10:01)
[2018-03-01] MEDS: POLYETHYLENE GLYCOL 17 GM PACKET PO SCH (10:02)
[2018-03-01] MEDS: CYANOCOBALOMIN 100MCG TABLET PO SCH (10:03)
[2018-03-01 12:23] VITALS: BP 120/78
[2018-03-01] MEDS ORDERED: ACET500T71 PO (15:02)
[2018-03-01] MEDS ORDERED: CYAN100074 PO (15:02)
[2018-03-01] MEDS ORDERED: NICO-486 TD (15:02)
== END 2018-03-01 17:20 | disposition home or self-care (01) | DRG 163 ==
LOC: ED 14:35 → EDIP 18:09 → 4NOR 19:50 → DCLOUNGE 03-01 17:00
PROVIDERS: ADMIT Family Medicine; ATTEND Family Medicine
PROC: 0W9B30Z Drainage of Left Pleural Cavity with Drainage Device, Percutaneous Approach (ICD-10-PCS; 2018-02-16)
PROC: 3E0L4GC Introduction of Other Therapeutic Substance into Pleural Cavity, Percutaneous Endoscopic Approach (ICD-10-PCS; 2018-02-21)
PROC: 0B9 Respiratory System, Drainage (ICD-10-PCS; 2018-02-21)
PROC: 3E0L4GC Introduction of Other Therapeutic Substance into Pleural Cavity, Percutaneous Endoscopic Approach (ICD-10-PCS; 2018-02-21)
PROC: 0BBG4ZZ Excision of Left Upper Lung Lobe, Percutaneous Endoscopic Approach (ICD-10-PCS; principal; 2018-02-21 14:15)
DX: A15.0 Tuberculosis of lung (principal); E43 Unspecified severe protein-calorie malnutrition; J95.811 Postprocedural pneumothorax; J94.8 Other specified pleural conditions; J44.0 Chronic obstructive pulmonary disease with (acute) lower respiratory infection; F33.1 Major depressive disorder, recurrent, moderate; F17.213 Nicotine dependence, cigarettes, with withdrawal; J98.11 Atelectasis; Z68.1 Body mass index [BMI] 19.9 or less, adult; M48.8X4 Other specified spondylopathies, thoracic region; J16.8 Pneumonia due to other specified infectious organisms; J90 Pleural effusion, not elsewhere classified; J94.2 Hemothorax; E53.8 Deficiency of other specified B group vitamins; F41.1 Generalized anxiety disorder; J43.9 Emphysema, unspecified; G25.81 Restless legs syndrome; K59.00 Constipation, unspecified; M19.90 Unspecified osteoarthritis, unspecified site; M91.12 Juvenile osteochondrosis of head of femur [Legg-Calve-Perthes], left leg; Z59.0 Homelessness; Z78.9 Other specified health status; Z87.11 Personal history of peptic ulcer disease; B95.3 Streptococcus pneumoniae as the cause of diseases classified elsewhere; B95.61 Methicillin susceptible Staphylococcus aureus infection as the cause of diseases classified elsewhere
CPT/HCPCS: 32557; 36415; 51702; 87806; 99285; J3490; 71045; 71250; 71260; 74177; 80048; 80053; 82040; 82728; 83540; 83550; 83690; 83735; 85014; 85018; 85025; 85610; 85651; 85730; 86140; 86480; 86612; 86635; 86698; 87015; 87070; 87075; 87077; 87102; 87116; 87181; 87186; 87205; 87206; 87305; 88307; 88312; C1729; G0378; J0171; J0295; J1100; J1644; J2250; J2270; J2405; J2704; J2710; J3010; J3480; Q9967; C1760; C1769; G0475; J0330; J0360

== ENCOUNTER 2018-03-08 08:18 | Emergency (ER) | payer MEDICAID ==
[~2018-03-08] VITALS: Ht 170.2 cm; Wt 50.5 kg
[~2018-03-08 08:18] MED LIST changes: +ACET500T71 PO; +CLON0.5T20 PO; +CYAN100074 PO; +NICO-486 TD; +TAMS0.4C2 PO
[2018-03-08 09:28] LABS: BASOPHILS # (AUTO) 0.05 x10^3/uL (0-0.1); BASOPHILS % (AUTO) 1 % (0-1); EOSINOPHILS % (AUTO) 1 % (1-7); LYMPHOCYTES # (AUTO) 1.32 x10^3/uL (1-3.4); LYMPHOCYTES % (AUTO) 19 % (22-44); MD NO; MEAN CORPUSCULAR HEMOGLOBIN 34.1 pg (27.5-34.5); MEAN CORPUSCULAR HGB CONC 34.1 g/dL (33.2-36.2); MEAN CORPUSCULAR VOLUME 100.1 fL (81-97); MEAN PLATELET VOLUME 6.5 fL (7.4-10.4); MONOCYTES # (AUTO) 0.73 x10^3/uL (0.2-0.8); MONOCYTES % (AUTO) 10 % (2-9); NEUTROPHILS # (AUTO) 4.87 x10^3/uL (1.8-6.8); NEUTROPHILS % (AUTO) 69 % (42-75); PLATELET COUNT 720 x10^3/uL (130-400); RED BLOOD COUNT 2.38 x10^6/uL (4.38-5.82); RED CELL DISTRIBUTION WIDTH 15.9 % (9.4-14.8)
[2018-03-08 09:37] LABS: ALBUMIN 2.9 g/dL (3.4-5.0); ANION GAP 8 mmol/L (5-15); CALCIUM 8.9 mg/dL (8.5-10.1); CHLORIDE 108 mmol/L (98-107); CREATININE 0.95 mg/dL (0.7-1.3)
[2018-03-08 10:39] VITALS: BP 109/81
== END 2018-03-08 10:41 | disposition home or self-care (01) ==
LOC: ED 09:12
DX: N40.1 Benign prostatic hyperplasia with lower urinary tract symptoms (principal); R33.8 Other retention of urine; J44.9 Chronic obstructive pulmonary disease, unspecified; F32.9 Major depressive disorder, single episode, unspecified; F17.200 Nicotine dependence, unspecified, uncomplicated; Z86.19 Personal history of other infectious and parasitic diseases
CPT/HCPCS: 36415; 80048; 82040; 85025; 99284

== ENCOUNTER 2018-04-03 14:19 | Emergency (ER) | payer MEDICAID ==
[~2018-04-03] VITALS: Ht 170.2 cm; Wt 57.0 kg
[2018-04-03] MEDS ORDERED: HYDROcodone/APAP 5/325 TABLET ONE (15:35)
[2018-04-03] MEDS ORDERED: KETOROLAC 30 MG/1 ML ONE (15:35)
[2018-04-03] MEDS ORDERED: HYDROcodone/APAP 5/325 TABLET PO ONE (16:00)
[2018-04-03] MEDS ORDERED: KETOROLAC 30 MG/1 ML IVPush ONE (16:00)
[2018-04-03 16:05] VITALS: BP 116/78
== END 2018-04-03 16:07 | disposition home or self-care (01) ==
LOC: ED 15:05
DX: R07.89 Other chest pain (principal); R05 Cough; J44.9 Chronic obstructive pulmonary disease, unspecified; F32.9 Major depressive disorder, single episode, unspecified; G89.29 Other chronic pain; F41.1 Generalized anxiety disorder; F17.200 Nicotine dependence, unspecified, uncomplicated
CPT/HCPCS: 71046; 93005; 96374; 99283; J1885

== ENCOUNTER 2018-05-20 15:19 | Emergency (ER) | payer MEDICAID ==
[~2018-05-20] VITALS: Ht 170.2 cm; Wt 58.0 kg
[~2018-05-20 15:19] MED LIST changes: +CEFD300C37 PO; +FAMO20TA7 PO; +METH4TAB2 PO
--- NOTE | 2018-05-20 15:50 | NUR ---
BIB [facility] CP SOB COUGH X 30 MO AND WEAKNESS INCREASING SEVERITY PAST HX IVÁN TUBE AND LUNG SURG HAS BEEN RO FOR TB IN THE PAST
[2018-05-20 15:51] LABS: BASOPHILS # (AUTO) 0.03 x10^3/uL (0-0.1); BASOPHILS % (AUTO) 1 % (0-1); EOSINOPHILS # (AUTO) 0.02 x10^3/uL (0-0.4); EOSINOPHILS % (AUTO) 0 % (1-7); LYMPHOCYTES # (AUTO) 1.28 x10^3/uL (1-3.4); LYMPHOCYTES % (AUTO) 21 % (22-44); MD NO; MEAN CORPUSCULAR VOLUME 81.9 fL (81-97); MEAN PLATELET VOLUME 7.1 fL (7.4-10.4); MONOCYTES # (AUTO) 0.83 x10^3/uL (0.2-0.8); MONOCYTES % (AUTO) 14 % (2-9); NEUTROPHILS % (AUTO) 64 % (42-75); PLATELET COUNT 314 x10^3/uL (130-400)
--- NOTE | 2018-05-20 15:55 | NUR ---
TO XR AT THIS TIME
[2018-05-20 15:59] LABS: ALBUMIN 3.1 g/dL (3.4-5.0); ANION GAP 8 mmol/L (5-15); CALCIUM 8.4 mg/dL (8.5-10.1); CHLORIDE 106 mmol/L (98-107); CREATININE 1.24 mg/dL (0.7-1.3)
[2018-05-20 16:03] LABS: TROPONIN I < 0.015 ng/mL (0.000-0.045)
[2018-05-20] MEDS ORDERED: KETOROLAC 30 MG/1 ML ONE (16:52)
[2018-05-20] MEDS ORDERED: KETOROLAC 30 MG/1 ML IM ONE (17:00)
[2018-05-20] MEDS ORDERED: KETOROLAC 30 MG/1 ML IVPush ONE (17:00)
[2018-05-20 17:09] VITALS: BP 112/74
== END 2018-05-20 17:35 | disposition home or self-care (01) ==
LOC: ED 16:23
DX: J18.9 Pneumonia, unspecified organism (principal); J44.9 Chronic obstructive pulmonary disease, unspecified; G89.29 Other chronic pain; Z86.19 Personal history of other infectious and parasitic diseases
CPT/HCPCS: 36415; 71046; 80048; 82040; 84484; 85025; 93005; 96374; 99284; J1885

== ENCOUNTER 2018-08-28 13:46 | Emergency (ER) | payer MEDICAID ==
[~2018-08-28] VITALS: Ht 170.2 cm; Wt 60.0 kg
[2018-08-28] MEDS ORDERED: ASPIRIN 81 MG TABLET CHEW PO ONE (14:00)
--- NOTE | 2018-08-28 14:04 | NUR ---
to room 3 from triage
[2018-08-28] MEDS ORDERED: ASPIRIN 81 MG TABLET CHEW ONE (14:08)
--- NOTE | 2018-08-28 14:20 | NUR ---
THIS IS A 48 YEAR OLD MALE WHO C/O OF CHEST PAIN. "RIPPING" COMES AND GOES X 4 MONTHS. 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
[2018-08-28 14:25] LABS: MEAN CORPUSCULAR HEMOGLOBIN 25.5 pg (27.5-34.5); MEAN CORPUSCULAR VOLUME 79.7 fL (81-97); MEAN PLATELET VOLUME 7.7 fL (7.4-10.4); PLATELET COUNT 368 x10^3/uL (130-400); RED BLOOD COUNT 4.49 x10^6/uL (4.38-5.82); RED CELL DISTRIBUTION WIDTH 22.1 % (9.4-14.8)
[2018-08-28 14:32] LABS: ALANINE AMINOTRANSFERASE 14 U/L (12-78); ALBUMIN 3.4 g/dL (3.4-5.0); ANION GAP 5 mmol/L (5-15); CALCIUM 8.6 mg/dL (8.5-10.1); CHLORIDE 110 mmol/L (98-107)
[2018-08-28 14:33] LABS: INTERNATIONAL NORMALIZED RATIO 0.97 (0.93-1.1); PROTHROMBIN TIME 10.2 Seconds (9.6-11.5)
[2018-08-28 14:37] LABS: ALKALINE PHOSPHATASE 92 U/L (45-117); BILIRUBIN,TOTAL 0.2 mg/dL (0.2-1.0); CREATININE 1.11 mg/dL (0.7-1.3); TOTAL PROTEIN 7.6 g/dL (6.4-8.2); TROPONIN I < 0.015 ng/mL (0.000-0.045)
[2018-08-28] MEDS ORDERED: CYCLOBENZAPRINE 10 MG TABLET ONE (14:51)
[2018-08-28] MEDS ORDERED: KETOROLAC 30 MG/1 ML ONE (14:51)
[2018-08-28] MEDS ORDERED: KETOROLAC 30 MG/1 ML IM ONE (15:00)
[2018-08-28] MEDS ORDERED: KETOROLAC 30 MG/1 ML IVPush ONE (15:00)
[2018-08-28] MEDS ORDERED: CYCLOBENZAPRINE 10 MG TABLET PO ONE (15:00)
[2018-08-28 15:07] LABS: MD YES
[2018-08-28 15:13] LABS: BAND#(MANUAL) 0.13 x10^3/uL; BANDS%(MANUAL) 2 % (0-7); LYMPH#(MANUAL) 2.35 x10^3/uL (1-3.4); LYMPHS% (MANUAL) 35 % (22-44); MONOS% (MANUAL) 6 % (2-9); SEG#(MANUAL) 3.75 x10^3/uL (1.8-6.8); SEGS% (MANUAL) 56 % (42-75)
[2018-08-28 15:14] LABS: ANISOCYTOSIS 2+; EOS#(MANUAL) 0.07 x10^3/uL (0.0-0.4); EOS% (MANUAL) 1 % (1-7); HYPOCHROMIA 2+; MICROCYTOSIS 2+
[2018-08-28 15:15] LABS: <PLATELET ESTIMATE> ADEQUATE; <PLT MORPHOLOGY> NORMAL PLT MORPH; POLYCHROMASIA 1+
[2018-08-28 15:38] VITALS: BP 105/67
--- NOTE | 2018-08-28 15:38 | NUR ---
Patient/Caregiver given discharge instructions and they have confirmed that they understand the instructions. Patient ambulatory with steady gait.
== END 2018-08-28 15:46 | disposition home or self-care (01) ==
LOC: ED 15:05
DX: R07.89 Other chest pain (principal); J44.9 Chronic obstructive pulmonary disease, unspecified; G89.29 Other chronic pain; Z86.19 Personal history of other infectious and parasitic diseases; Z87.891 Personal history of nicotine dependence
CPT/HCPCS: 36415; 71045; 80053; 83880; 84484; 85025; 85379; 85610; 85730; 93005; 96372; 99284; J1885

== ENCOUNTER 2018-09-17 07:53 | Emergency (ER) | payer MEDICAID ==
[~2018-09-17] VITALS: Ht 167.6 cm; Wt 55.2 kg
[2018-09-17 08:04] VITALS: BP 117/85
[2018-09-17] MEDS ORDERED: LIDOCAINE-MPF 1%, 5ML ONE (08:14)
--- NOTE | 2018-09-17 08:52 | NUR ---
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 Patient ambulatory with steady gait.
[2018-09-17] MEDS ORDERED: LIDOCAINE-MPF 1%, 5ML INFIL ONE (09:00)
== END 2018-09-17 08:58 | disposition home or self-care (01) ==
LOC: ED 08:48
DX: L03.011 Cellulitis of right finger (principal); J44.9 Chronic obstructive pulmonary disease, unspecified; Z87.891 Personal history of nicotine dependence
CPT/HCPCS: 10060; 99283

== ENCOUNTER 2018-09-19 07:39 | Emergency (ER) | payer MEDICAID ==
[~2018-09-19] VITALS: Ht 170.2 cm; Wt 54.0 kg
[2018-09-19 07:42] VITALS: BP 128/60
--- NOTE | 2018-09-19 07:54 | NUR ---
48 Y/O MALE PRESENTS TO ED WITH C/O SWELLING OF RIGHT INDEX FINGER. PT STATES "I WAS HERE [facility] AND THEY LANCED IT. I'VE BEEN TAKING ABX. IT'S WORSE." NO ACUTE DISTRESS NOTED.
[2018-09-19] MEDS ORDERED: BENZOCAINE AEROSOL SPRAY 20%, 60ML ONE (07:56)
[2018-09-19] MEDS ORDERED: BACITRACIN ZINC OINT 500U/GM, 0.9 GM ONE (08:12)
[2018-09-19] MEDS ORDERED: CEFAZOLIN 1,000 MG ONE (08:12)
[2018-09-19] MEDS ORDERED: CEFAZOLIN 1,000 MG IM ONE (08:30)
--- NOTE | 2018-09-19 08:30 | NUR ---
Patient/Caregiver given discharge instructions and they have confirmed that they understand the instructions. Patient ambulatory with steady gait. PT LEFT WITH ALL PERSONAL BELONGINGS.
== END 2018-09-19 08:32 | disposition home or self-care (01) ==
LOC: ED 08:31
DX: L03.011 Cellulitis of right finger (principal); J44.9 Chronic obstructive pulmonary disease, unspecified; Z86.19 Personal history of other infectious and parasitic diseases
CPT/HCPCS: 10060; 96372; 99283; J0690

== ENCOUNTER 2018-09-27 12:16 | Emergency (ER) | payer MEDICAID ==
[~2018-09-27] VITALS: Ht 170.2 cm; Wt 55.1 kg
[2018-09-27 12:24] VITALS: BP 106/72
[2018-09-27] MEDS ORDERED: BACITRACIN ZINC OINT 500U/GM, 0.9 GM ONE (12:49)
--- NOTE | 2018-09-27 12:49 | NUR ---
RECHECK ON RIGHT HAND 2ND DIGIT WOUND. BACITRACIN APPLIED AND BANDAID
== END 2018-09-27 13:15 | disposition home or self-care (01) ==
LOC: ED 13:09
DX: L03.011 Cellulitis of right finger (principal); I10 Essential (primary) hypertension; J44.9 Chronic obstructive pulmonary disease, unspecified; G89.29 Other chronic pain
CPT/HCPCS: 99283

== ENCOUNTER 2018-10-11 08:20 | Emergency (ER) | payer MEDICAID ==
[~2018-10-11] VITALS: Ht 170.2 cm; Wt 52.3 kg
[2018-10-11 08:50] LABS: BASOPHILS # (AUTO) 0.08 x10^3/uL (0-0.1); BASOPHILS % (AUTO) 1 % (0-1); EOSINOPHILS # (AUTO) 0.16 x10^3/uL (0-0.4); EOSINOPHILS % (AUTO) 2 % (1-7); LYMPHOCYTES % (AUTO) 30 % (22-44); MD NO; MEAN CORPUSCULAR HEMOGLOBIN 28.4 pg (27.5-34.5); MEAN PLATELET VOLUME 7.1 fL (7.4-10.4); MONOCYTES # (AUTO) 0.78 x10^3/uL (0.2-0.8); MONOCYTES % (AUTO) 12 % (2-9); NEUTROPHILS # (AUTO) 3.61 x10^3/uL (1.8-6.8); NEUTROPHILS % (AUTO) 55 % (42-75); PLATELET COUNT 317 x10^3/uL (130-400); RED BLOOD COUNT 4.06 x10^6/uL (4.38-5.82); RED CELL DISTRIBUTION WIDTH 21.2 % (9.4-14.8)
[2018-10-11 08:59] LABS: ALBUMIN 3.5 g/dL (3.4-5.0); ANION GAP 4 mmol/L (5-15); CALCIUM 8.9 mg/dL (8.5-10.1); CHLORIDE 108 mmol/L (98-107); CREATININE 1.09 mg/dL (0.7-1.3)
[2018-10-11] MEDS ORDERED: CLON0.5T11 PO (09:04)
--- NOTE | 2018-10-11 09:08 | NUR ---
PT. STATES HE FELL ON WEDNESDAY. NO LOC. no blood thinners. PT. STATES HIS LEGS "JERKED OUT FROM UNDER HIM". PT. HAS C/O LEFT SIDED BACK PAIN AND LEG PAIN. No assessed or reported deformity. Presents as he might have damaged his already chronically diseased left hip ambulatory, cms intact
--- NOTE | 2018-10-11 09:27 | NUR ---
to xray, phlebotomy obtained labs while patient waiting in lobby earlier
[2018-10-11] MEDS ORDERED: ACETAMINOPHEN 500 MG TABLET PO ONE (09:30)
--- NOTE | 2018-10-11 09:46 | NUR ---
BACK FROM XRAY OFFERED TYLENOL-PATIENT REFUSED OFFERED ICE/HEAT-PATIENT DEFERRING WELL UPDATED ON ESTIMATED POC
[2018-10-11 10:04] VITALS: BP 127/80
== END 2018-10-11 10:07 | disposition home or self-care (01) ==
LOC: ED 10:00
DX: S70.02XA Contusion of left hip, initial encounter (principal); Q74.2 Other congenital malformations of lower limb(s), including pelvic girdle; W18.39XA Other fall on same level, initial encounter; Y93.89 Activity, other specified; Y92.89 Other specified places as the place of occurrence of the external cause; Y99.8 Other external cause status; I10 Essential (primary) hypertension; J44.9 Chronic obstructive pulmonary disease, unspecified; Z87.01 Personal history of pneumonia (recurrent); Z87.891 Personal history of nicotine dependence
CPT/HCPCS: 36415; 72110; 80048; 82040; 85025; 99284

== ENCOUNTER 2018-11-05 19:08 | Emergency (ER) | payer MEDICAID ==
[~2018-11-05] VITALS: Ht 170.2 cm; Wt 61.0 kg
[2018-11-05 19:13] VITALS: BP 108/79
--- NOTE | 2018-11-05 19:42 | NUR ---
PATIENT FOUND WALKING OUT THE ROOM WITH STEADY GAIT AND IN A HURRY. PRIMARY RN AND MD NOTIFIED.
== END 2018-11-05 19:47 | disposition left against medical advice (07) ==
LOC: ED 19:41
DX: F10.120 Alcohol abuse with intoxication, uncomplicated (principal); M62.81 Muscle weakness (generalized); F17.200 Nicotine dependence, unspecified, uncomplicated; I10 Essential (primary) hypertension; J44.9 Chronic obstructive pulmonary disease, unspecified; F32.9 Major depressive disorder, single episode, unspecified; F41.1 Generalized anxiety disorder; Y90.9 Presence of alcohol in blood, level not specified
CPT/HCPCS: 99283

== ENCOUNTER 2018-11-29 11:34 | Emergency (ER) | payer MEDICAID ==
[~2018-11-29] VITALS: Ht 170.2 cm; Wt 55.0 kg
[2018-11-29 11:42] VITALS: BP 122/83
== END 2018-11-29 13:01 | disposition home or self-care (01) ==
LOC: ED 12:47
DX: R22.1 Localized swelling, mass and lump, neck (principal); T78.1XXA Other adverse food reactions, not elsewhere classified, initial encounter; R11.2 Nausea with vomiting, unspecified; I10 Essential (primary) hypertension; J44.9 Chronic obstructive pulmonary disease, unspecified; F32.9 Major depressive disorder, single episode, unspecified
CPT/HCPCS: 96374; 96375; 99283; J2405; J2930

== ENCOUNTER 2019-05-08 17:01 | Emergency (ER) | payer MEDICAID ==
[~2019-05-08] VITALS: Ht 172.7 cm; Wt 65.0 kg
[~2019-05-08 17:01] MED LIST changes: +ACET500T64 PO; -ACET500T71 PO; +CLON-364 PO; -CLON0.5T11 PO
--- NOTE | 2019-05-08 17:17 | NUR ---
SEEN BY MD WEDNESDAY WITH COUGH. PER PT MD THOUGHT HE MAY HAVE NON-CONGATGIOUS TB. PT HAS HX OF LOBECTOMY THAT MAY HAVE BEEN FUNGAL OR MAY HAVE BEEN TB, HE IS UNSURE. COUGH WITH ACCOMPANYING SOB TODAY AND ALSO C/O NIGHT SWEATS.
--- NOTE | 2019-05-08 17:41 | NUR ---
NO TB ISOLATION PER SIMONA RN INFECTION CONTROL
[2019-05-08] MEDS ORDERED: ALBUTEROL/IPRATROPIUM 2.5MG/0.5MG, 3 ML ONE (17:47)
[2019-05-08] MEDS ORDERED: ALBUTEROL/IPRATROPIUM 2.5MG/0.5MG, 3 ML NPPB ONE (18:00)
--- NOTE | 2019-05-08 18:28 | NUR ---
WOB IMPROVED WITH DECREASE IN COUGH AFTER BREATHING TX
[2019-05-08 18:40] VITALS: BP 134/94
== END 2019-05-08 18:43 | disposition home or self-care (01) ==
LOC: ED 18:40
DX: J44.1 Chronic obstructive pulmonary disease with (acute) exacerbation (principal); J20.9 Acute bronchitis, unspecified
CPT/HCPCS: 71045; 94640; 99283; J7512; J7620

== ENCOUNTER 2019-07-15 19:37 | Emergency (ER) | payer MEDICAID ==
[~2019-07-15] VITALS: Ht 167.6 cm; Wt 74.0 kg
[2019-07-15 20:36] VITALS: BP 121/79
--- NOTE | 2019-07-15 20:44 | NUR ---
Patient given discharge instructions and they have confirmed that they understand the instructions. Patient ambulatory with steady gait.
== END 2019-07-15 20:50 | disposition home or self-care (01) ==
LOC: ED 20:40
DX: S70.02XA Contusion of left hip, initial encounter (principal); X58.XXXA Exposure to other specified factors, initial encounter; Y93.89 Activity, other specified; Y92.89 Other specified places as the place of occurrence of the external cause; Y99.8 Other external cause status
CPT/HCPCS: 99284

== ENCOUNTER 2019-10-18 16:09 | Emergency (ER) | payer MEDICAID ==
[~2019-10-18] VITALS: Ht 170.2 cm; Wt 58.0 kg
--- NOTE | 2019-10-18 16:20 | NUR ---
THIS IS A 49 YO MALE BIB [facility] FROM [facility] FOR [facility]GL[facility] SECONDARY TO ETOH INTOXICATION. PATIENT C/O LEFT SHOULDER/ELBOW/HIP PAIN, NO OBVIOUS DEFORMITIES, SWELLING NOTED TO RIGHT ELBOW WITH TENDERNESS TO PALPATION. DENIES HITTING HEAD/DENIES LOC. STATES "I DRANK 4 BEERS TODAY". A&OX4, VSS, NADN. CALL LIGHT IN REACH, GIVEN URINAL DUE TO FREQUENT URINATION. MONITORING IN PLACE.
[2019-10-18] MEDS ORDERED: KETOROLAC 30 MG/1 ML ONE (16:52)
[2019-10-18 17:11] VITALS: BP 117/85
[2019-10-18] MEDS ORDERED: IBUPROFEN 600 MG TABLET ONE (18:44)
[2019-10-18] MEDS ORDERED: IBUPROFEN 600 MG TABLET PO ONE (19:00)
--- NOTE | 2019-10-18 19:19 | NUR ---
Patient given discharge instructions and they have confirmed that they understand the instructions. Patient ambulatory with steady gait.
== END 2019-10-18 19:21 | disposition home or self-care (01) ==
LOC: ED 18:56
DX: S46.812A Strain of other muscles, fascia and tendons at shoulder and upper arm level, left arm, initial encounter (principal); S50.02XA Contusion of left elbow, initial encounter; S70.02XA Contusion of left hip, initial encounter; S80.812A Abrasion, left lower leg, initial encounter; I10 Essential (primary) hypertension; J44.9 Chronic obstructive pulmonary disease, unspecified; F17.200 Nicotine dependence, unspecified, uncomplicated; W01.0XXA Fall on same level from slipping, tripping and stumbling without subsequent striking against object, initial encounter; Y93.89 Activity, other specified; Y92.488 Other paved roadways as the place of occurrence of the external cause; Y99.8 Other external cause status
CPT/HCPCS: 99284

== ENCOUNTER 2019-11-28 22:27 | Emergency (ER) | payer MEDICAID ==
[~2019-11-28] VITALS: Ht 177.8 cm; Wt 68.0 kg
[2019-11-28 22:33] VITALS: BP 106/76
--- NOTE | 2019-11-28 22:50 | NUR ---
pt resting on gurney. attached to O2 and BP monitors. bed rails up x 2. urinal on bedrail, pt made aware of it. call light given to pt and he was educated on its use. pt verbalized understanding. pt in camera monitored room.
--- NOTE | 2019-11-29 03:14 | NUR ---
pt ambulatory to the discharge desk with a steady gait. pt A+Ox4, VSS. pt offered taxi voucher, pt refused.
== END 2019-11-29 03:16 | disposition home or self-care (01) ==
LOC: ED 23:43
DX: F10.120 Alcohol abuse with intoxication, uncomplicated (principal); I10 Essential (primary) hypertension; J44.9 Chronic obstructive pulmonary disease, unspecified; Y90.9 Presence of alcohol in blood, level not specified
CPT/HCPCS: 99283

== ENCOUNTER 2019-12-03 19:17 | Emergency (ER) | payer MEDICAID ==
[~2019-12-03] VITALS: Ht 170.2 cm; Wt 56.7 kg
--- NOTE | 2019-12-03 19:25 | NUR ---
BIB [facility] with +ETOH. Ambulance was called by the [facility] who reported patient to be belligerantly drunk and "shadow boxing." Patient has no complaints. Minor lac noted to chin; bleeding controlled.
--- NOTE | 2019-12-03 20:50 | NUR ---
PT REMOVED MONITORING EQUIPMENT
[2019-12-04 03:02] VITALS: BP 132/86
== END 2019-12-04 03:03 | disposition home or self-care (01) ==
LOC: ED 21:52
DX: F10.220 Alcohol dependence with intoxication, uncomplicated (principal); J44.9 Chronic obstructive pulmonary disease, unspecified; I10 Essential (primary) hypertension; Y90.9 Presence of alcohol in blood, level not specified
CPT/HCPCS: 99283

== ENCOUNTER 2020-10-30 18:46 | Emergency (ER) | payer MEDICAID ==
--- NOTE | 2020-10-30 19:03 | NUR ---
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 PT. AMBULATED OUT AMBULANCE BAY WITH STEADY GAIT.
== END 2020-10-30 19:05 | disposition left against medical advice (07) ==
LOC: ED 19:00
DX: R06.02 Shortness of breath (principal); Z53.21 Procedure and treatment not carried out due to patient leaving prior to being seen by health care provider